=== PATIENT | male | born 1955 | race Two or more races ===

== ENCOUNTER 2017-02-10 07:46 | Emergency (ER) | payer OTHER ==
[~2017-02-10] VITALS: Ht 165.1 cm; Wt 87.2 kg
[~2017-02-10 07:46] MED LIST: VALIUM
[2017-02-10 07:48] VITALS: Ht 165.1 cm; Wt 87.2 kg
[2017-02-10] MEDS ORDERED: MUPI22OI2 TOP (08:25)
[2017-02-10] MEDS ORDERED: ACYC800T57 PO (08:25)
--- NOTE | 2017-02-10 09:25 | ERD ---
ER Documentation Chief Complaint Chief Complaint blistery painful rash right side thorso x2wks HPI Patient is a 62-year-old male presenting to the emergency department with complaints of rash to the right lower back, wrapping around to the right torso. He also noticed a lesion on the right side of his face. Symptoms started 2 weeks ago, and have been spreading according to the patient. He notes a mild itch and burning sensation. He is unsure whether he had chickenpox as a child. He denies fevers, chills, or other symptoms at this time. ROS All systems reviewed and are negative except as per history of present illness. Medications Home Meds Active Scripts Mupirocin* (Bactroban*) 2% -22 Gram Oint...g., 1 APPLIC TOP BID for 7 Days, EA Prov:VINOD DUFFY PA-C 02/10/17 Acyclovir* (Zovirax*) 800 Mg Tablet, 800 MG PO 5 TIMES DAILY for 7 Days, #35 TAB Prov:VINOD DUFFY PA-C 02/10/17 Reported Medications Valium 07/10/09 Allergies Allergies: Coded Allergies: No Known Drug Allergies (Verified Allergy, Mild, 07/10/09) PMhx/Soc History of Surgery: No Anesthesia Reaction: No Hx Neurological Disorder: No Hx Respiratory Disorders: No Hx Cardiac Disorders: No Hx Psychiatric Problems: No Hx Miscellaneous Medical Probl: No Hx Alcohol Use: No Hx Substance Use: No Hx Tobacco Use: No Physical Exam Vitals Vital Signs Date Time Temp Pulse Resp B/P Pulse Ox O2 Delivery O2 Flow Rate FiO2 02/10/17 07:48 98.1 71 18 134/83 97 Physical Exam Const: Nontoxic, well-appearing male in no acute distress. Head: Atraumatic Eyes: Normal Conjunctiva ENT: Normal External Ears, Nose and Mouth. Skin: There is a macular papular rash with vesicles noted to the right lower back, with some areas that appear to have ruptured and are healing. There is no significant surrounding erythema. There are some fresh vesicular lesions noted to the right lower torso and one noted on the right side of the face, just medial to the right eyebrow. No obvious signs of cellulitis noted. Back: No midline or flank tenderness Ext: No cyanosis, or edema Neur: Awake and alert Psych: Normal Mood and Affect Procedures/MDM Patient is a pleasant 62-year-old male presenting to the emergency department with complaints of rash. History and physical examination is consistent with shingles with no obvious cellulitis present. The patient stable for discharge with prescriptions for acyclovir and Bactroban. Low suspicion for herpes zoster ophthalmicus, disseminated cellulitis, sepsis, or other emergent conditions. No evidence of life-threatening pathology at time of discharge. Pt /family in agreement with discharge plan/diagnosis. Pt/family advised to return immediately with any new or worsening symptoms. Follow-up with primary care physician within the next 1-2 days. Departure Diagnosis: Primary Impression: Rash and other nonspecific skin eruption Condition: Fair Patient Instructions: Self-Care for Skin Rashes, Shingles (Herpes Zoster) Additional Instructions: Call your primary care doctor TOMORROW for an appointment during the next 1-2 days.See the doctor sooner or return here if your condition worsens before your appointment time. VINOD DUFFY PA-C Feb 10, 2017 09:25
== END 2017-02-10 09:05 | disposition home or self-care (01) ==
LOC: FTE 07:46
DX: R21 Rash and other nonspecific skin eruption (principal)
CPT/HCPCS: 99284

== ENCOUNTER 2018-08-13 12:00 | Inpatient (IN) | payer MEDICAID, OTHER ==
[2018-08-13] VITALS (16 sets, daily range): BP systolic 115–144; BP diastolic 71–93; PULSE 48–128; RESP 9–19; Ht 165.1 cm; Wt 84.0 kg
[~2018-08-13] VITALS: Ht 165.1 cm; Wt 84.0 kg
[~2018-08-13 12:00] MED LIST changes: +ACYC800T5 PO; +MUPI22OI2 TOP
[2018-08-13] MEDS ORDERED: ASPIRIN 325 MG TAB PO STA (12:08)
[2018-08-13] MEDS ORDERED: ONDANSETRON 4 MG INJ IV STA (12:08)
[2018-08-13] MEDS ORDERED: morphine 4 MG/ML VIAL IV STA (12:08)
[2018-08-13] MEDS ORDERED: LIDOCAINE 1% (MDV) 20 ML INJ ONE (12:22)
[2018-08-13] MEDS ORDERED: VERAPAMIL 5 MG INJ ONE (12:22)
[2018-08-13] MEDS ORDERED: HEPARIN 1000 UNITS/ML 10 ML INJ ONE (12:22)
[2018-08-13] MEDS ORDERED: FENTAnyl 50 MCG/ML VIAL ONE (12:22)
[2018-08-13] MEDS ORDERED: IODIXANOL LOCM 100 ML BTL ONE (12:22)
[2018-08-13] MEDS ORDERED: MIDAZOLAM 1 MG/ML 2 ML INJ ONE (12:22)
[2018-08-13] MEDS ORDERED: NITROGLYCERIN (IC) 100 MCG/ML INJ ONE (12:22)
[2018-08-13] MEDS ORDERED: NITROGLYCERIN (SL) 0.4 MG TAB SL PRN (12:30)
[2018-08-13] MEDS ORDERED: ASPI-817 PO (12:42)
[2018-08-13] MEDS ORDERED: NITR0.4T32 SL (12:42)
[2018-08-13] MEDS ORDERED: ERGO500013 PO (12:43)
[2018-08-13] MEDS ORDERED: LOVA20TA PO (12:43)
[2018-08-13] MEDS ORDERED: TERA2CAP3 PO (12:44)
--- NOTE | 2018-08-13 13:00 | ERD ---
ER Documentation Chief Complaint Chief Complaint chest pressure since yesterday HPI 63-year-old gentleman history of hypertension and hyperlipidemia who presents as a walk-in patient for chest pressure. He was having substernal chest discomfort that is 6 out of 10. He states over the past 2 days he has had worsening symptoms. He took a nitroglycerin at home with only moderate improvement. He arrives and appears to be critically ill. He is uncomfortable and diaphoretic and immediately placed in the room. Patient's EKG is concerning for ST elevation myocardial infarction. He denies any mid back pain or numbness or tingling or headache. ROS All systems reviewed and are negative except as per history of present illness. Medications Home Meds Reported Medications Terazosin Hcl* (Terazosin Hcl*) 2 Mg Capsule, 2 MG PO HS, CAP 08/13/18 Lovastatin* (Lovastatin*) 20 Mg Tablet, 20 MG PO HS, TAB 08/13/18 Ergocalciferol (Vitamin D2) (VITAMIN D2) 50,000 Unit Capsule, 51296 UNIT PO Q7D, CAP 08/13/18 Nitroglycerin* (Nitroglycerin* SL) 0.4 Mg Tab.subl, 0.4 MG SL Q5MIN PRN for CHEST PAIN, BOTTLE 08/13/18 Aspirin* (Aspirin* EC) 81 Mg Tablet.dr, 81 MG PO DAILY, TAB 08/13/18 Discontinued Reported Medications Valium 07/10/09 Discontinued Scripts Mupirocin* (Bactroban*) 2% -22 Gram Oint...g., 1 APPLIC TOP BID for 7 Days, EA Prov:VINOD DUFFY PA-C 02/10/17 Acyclovir* (Zovirax*) 800 Mg Tablet, 800 MG PO 5 TIMES DAILY for 7 Days, #35 TAB Prov:VINOD DUFFY PA-C 02/10/17 Allergies Allergies: Coded Allergies: No Known Drug Allergies (Verified Allergy, Mild, 08/13/18) PMhx/Soc Medical and Surgical Hx: pt denies Medical Hx, pt denies Surgical Hx History of Surgery: No Anesthesia Reaction: No Hx Neurological Disorder: No Hx Respiratory Disorders: No Hx Cardiac Disorders: No Hx Psychiatric Problems: No Hx Miscellaneous Medical Probl: No Hx Alcohol Use: No Hx Substance Use: No Hx Tobacco Use: No Smoking Status: [facility] smoker [facility] Family History: No diabetes Physical Exam Vitals Vital Signs Date Temp Pulse Resp B/P (MAP) Pulse Ox O2 O2 Flow FiO2 Time Delivery Rate 08/13/18 98.5 71 18 130/69 98 Nasal 12:15 (89) Cannula 08/13/18 Nasal 2 12:05 Cannula 08/13/18 98.2 70 18 161/84 98 12:02 (109) Physical Exam General: Uncomfortable Head: Normocephalic, atraumatic. Eyes: Pupils equally reactive, EOM intact ENT: Moist mucous membranes Neck: Supple, no lymphadenopathy Respiratory: Lungs clear bilaterally, no distress Cardiovascular: RRR, no murmurs, rubs, or gallops Abdominal: Soft, non-tender, non-distended, no peritoneal signs : Deferred MSK: No edema, no unilateral swelling, 5/5 strength Neurologic: Alert and oriented, moving all extremities, normal speech, no focal weakness, no cerebellar signs Skin: No rash Psych: Normal mood Result Diagram: 08/13/18 1212 08/13/18 1212 Results 24 hrs Laboratory Tests Test 08/13/18 12:12 White Blood Count 9.7 10^3/ul Red Blood Count 4.24 10^6/ul Hemoglobin 13.2 g/dl Hematocrit 39.8 % Mean Corpuscular Volume 93.9 fl Mean Corpuscular Hemoglobin 31.1 pg Mean Corpuscular Hemoglobin Concent 33.2 g/dl Red Cell Distribution Width 12.9 % Platelet Count 175 10^3/UL Mean Platelet Volume 12.0 fl Immature Granulocytes % 0.300 % Neutrophils % 80.8 % Lymphocytes % 11.7 % Monocytes % 6.4 % Eosinophils % 0.7 % Basophils % 0.1 % Nucleated Red Blood Cells % 0.0 /100WBC Immature Granulocytes # 0.030 10^3/ul Neutrophils # 7.9 10^3/ul Lymphocytes # 1.1 10^3/ul Monocytes # 0.6 10^3/ul Eosinophils # 0.1 10^3/ul Basophils # 0.0 10^3/ul Nucleated Red Blood Cells # 0.0 10^3/ul Prothrombin Time 12.6 Sec Prothrombin Time Ratio 1.0 INR International Normalized Ratio 0.93 Activated Partial Thromboplast Time 24.4 Sec Sodium Level 142 mmol/L Potassium Level 4.0 mmol/L Chloride Level 110 mmol/L Carbon Dioxide Level 24 mmol/L Anion Gap 8 Blood Urea Nitrogen 19 mg/dl Creatinine 1.17 mg/dl Est Glomerular Filtrat Rate mL/min > 60 mL/min Glucose Level 160 mg/dl Calcium Level 8.8 mg/dl Troponin I 0.020 ng/ml Current Medications Medications Dose Sig/[place] Start Time Status Last (Trade) Ordered Route PRN Stop Time Admin Dose Reason Admin Aspirin 325 mg ONCE STAT 08/13/18 DC 08/13/18 (Aspirin) PO 12:08 12:36 08/13/18 12:10 Morphine 4 mg ONCE STAT 08/13/18 DC 08/13/18 Sulfate IV 12:08 12:36 (morphine) 08/13/18 12:10 Ondansetron 4 mg ONCE STAT 08/13/18 DC 08/13/18 HCl (Zofran IV 12:08 12:36 Inj) 08/13/18 12:10 Procedures/MDM EKG, MONITORS, & DIAGNOSTIC IMAGING: EKG: I reviewed and interpreted a 12-lead EKG. Rhythm: Normal sinus rhythm ST Changes: ST segment elevations in leads V34 and 5 T waves: No contiguous T wave inversions Impression: Concerning for STEMI REPEAT EKG: I reviewed and interpreted a 12-lead EKG. Rhythm: Normal sinus rhythm ST Changes: ST segment elevations in leads V34 and 5 T waves: No contiguous T wave inversions Impression: Concerning for STEMI Chest x-ray: I reviewed and interpreted a 1 view of the chest Mediastinum: No enlargement Cardiac silhouette: No cardiomegaly Airspace: Clear lung briscoe bilaterally without evidence of pneumothorax Bones: No evidence of fracture LAB INTERPRETATION: pending MEDICAL DECISION MAKING: The patient arrives with chest pressure that is concerning for cardiac etiology. EKG is concerning for ST elevation myocardial infarction. Patient was immediately placed on the monitor, 2 large-bore IVs were established. The patient was placed on pacer pads. He was given aspirin, nitro, morphine with improved symptomatology. Electrical [employer] Re[employer] was readily activated and the patient was emergently taken to the [facility] where he had a conversation with the vacuum system tester and the patient is a good candidate for angiogram. No signs or symptoms concerning for dissection or pulmonary embolism. STEMI assessment and timing: Onset of symptoms: 2 days ago Arrival to ED: See EMR STEMI code activation: 1208 Initial conversation with cardiology: Denis in person convo in the dental laboratory technology teacher Patient taken to [facility]: [id number] powertrain design engineer on-call: Dr. Ritchie Critical Care Note: Total time: 35 minutes Indication/Organ System Threat: Acute EKG changes suggestive of ST elevation myocardial infarction and significant risk for cardiovascular compromise and collapse. I spent the above amount of critical care time with the patient, not including billable procedures. This included chart review, consultations, repeat bedside evaluations, and titration of appropriate medications to prevent cardiopulmonary or respiratory collapse. DISPOSITION PLAN: ICU admission Accepting care team and consultations: I discussed the current laboratory data, diagnostic imaging and emergency care provided. Admitting team: Dr. Nair Admitting team indication: Insurance directed Departure Diagnosis: Primary Impression: STEMI (ST elevation myocardial infarction) Involved coronary artery: unspecified coronary artery Qualified Codes: I21.3 - ST elevation (STEMI) myocardial infarction of unspecified site Additional Impression: Chest pain Chest pain type: unspecified Qualified Codes: R07.9 - Chest pain, unspecified Condition: Critical DENISSE MADERA MD August 13, 2018 13:00
[2018-08-13] MEDS ORDERED: CLOPIDOGREL 300 MG TAB ONE (13:08)
[2018-08-13] MEDS ORDERED: BIVALIRUDIN 250MG /NS 50 ML 50 ML IVPB SCH (13:17)
[2018-08-13] MEDS ORDERED: SOD CHLORIDE 0.9% 1,000 ML IV SCH (13:17)
--- NOTE | 2018-08-13 13:22 | SIPON ---
Date/Time of Note Date/Time of Note DATE: 08/13/18 TIME: 13:21 Operative Report Preoperative Diagnosis 1.STEMI Postoperative Diagnosis 1.obstructive cad s/p stent x 1 to LAD Operation/Procedure Performed 1.PTCA/stent x 1 to mid LAD Surgeon see signature line gift shop assistant 1.[place] Anesthesia: moderate sedation Estimated blood loss: minimal Transfusion Required none Specimen none Grafts/Implants none Complications none GAMA PLASCENCIA August 13, 2018 13:21
[2018-08-13] MEDS ORDERED: ZOLPIDEM 5 MG TAB PO PRN (13:30)
[2018-08-13] MEDS ORDERED: morphine 2 MG INJ IV PRN (13:30)
[2018-08-13] MEDS ORDERED: ACETAMINOPHEN 325 MG TAB PO PRN (13:30)
[2018-08-13] MEDS ORDERED: ONDANSETRON 4 MG INJ IV PRN (13:30)
[2018-08-13] MEDS ORDERED: OXYCODONE/ACETAMINOPHEN (5/325) TAB PO PRN (13:30)
[2018-08-13] MEDS ORDERED: AL HYDROX/MG HYDROX/SIMETH 30 ML CUP PO PRN (13:30)
--- NOTE | 2018-08-13 16:15 | HP ---
Date/Time of Note Date/Time of Note DATE: 08/13/18 TIME: 16:14 Assessment/Plan VTE Prophylaxis Pharmacological prophylaxis: NA/contraindicated Pharm contraindication: low risk/ambulating Lines/Catheters IV Catheter Type (from [facility]): Peripheral IV Urinary Cath still in place: No Assessment/Plan Hospital Course 63-year-old male with comorbidities including dyslipidemia and prostate hypertrophy who was brought in with STEMI and was taken to [facility] emergently and underwent a left heart catheterization with LAD stent placed. 1. STEMI. -Status post left heart catheterization with stent placement to mid LAD. -Continue dual antiplatelet therapy. -Pending 2D echocardiogram. -Continue statins. 2. Hypertension. -Start the patient on appropriate antihypertensives. 3. Dyslipidemia. -Continue statins. -Obtain a fasting lipid panel. 4. Prostate hypertrophy. -Resume alpha blockers. Plan: The patient will be admitted to inpatient intensive care unit floor. The patient will be started on a low-cholesterol diet. The patient will be started on DVT prophylaxis and gastrointestinal prophylaxis. The patient will remain a full code. Activities will be as tolerated. The rest of the patient's management will be based on the clinical course, inputs from consultants, and the results of diagnostic studies. Based on the patient's clinical presentation, he most probably requires at least 2 midnights' stay for further management and evaluation of his clinical presentation. The patient was seen in collaboration with Dr. Nair. Result Diagram: 08/13/18 1212 08/13/18 1212 Results 24hrs Laboratory Tests Test 08/13/18 12:11 08/13/18 12:12 Hemoglobin A1c 5.6 White Blood Count 9.7 Red Blood Count 4.24 L Hemoglobin 13.2 L Hematocrit 39.8 L Mean Corpuscular Volume 93.9 Mean Corpuscular Hemoglobin 31.1 Mean Corpuscular Hemoglobin Concent 33.2 Red Cell Distribution Width 12.9 Platelet Count 175 Mean Platelet Volume 12.0 H Immature Granulocytes % 0.300 Neutrophils % 80.8 H Lymphocytes % 11.7 L Monocytes % 6.4 Eosinophils % 0.7 Basophils % 0.1 Nucleated Red Blood Cells % 0.0 Immature Granulocytes # 0.030 Neutrophils # 7.9 H Lymphocytes # 1.1 Monocytes # 0.6 Eosinophils # 0.1 Basophils # 0.0 Nucleated Red Blood Cells # 0.0 Prothrombin Time 12.6 Prothrombin Time Ratio 1.0 INR International Normalized Ratio 0.93 Activated Partial Thromboplast Time 24.4 Sodium Level 142 Potassium Level 4.0 Chloride Level 110 Carbon Dioxide Level 24 Anion Gap 8 Blood Urea Nitrogen 19 Creatinine 1.17 Est Glomerular Filtrat Rate mL/min > 60 Glucose Level 160 Calcium Level 8.8 Troponin I 0.020 HPI/ROS Admit Date/Time Admit Date/Time August 13, 2018 at 12:36 Hx of Present Illness Reason for admission: STEMI. Consultants 1. Mekhi Ritchie MD, Cardiology. This is a 63-year-old male with past medical history of prostate hypertrophy and dyslipidemia. The patient started having chest pain with associated fatigue since 08/12/2018 evening. The patient went to bed after eating some food. The patient woke up in the morning with chest pain. The patient denied any nausea/vomiting. He denied any diaphoresis. The patient's family called EMS and the patient was found to have ST elevation MD. The patient was emergently taken to the [facility] and the patient underwent a left heart catheterization with PTCA stent x1 to mid LAD. The patient was transferred to intensive care unit. ROS Constitutional: fatigue Eyes: no complaints ENT: no complaints Respiratory: no complaints Cardiovascular: chest pain Gastrointestinal: no complaints Genitourinary: no complaints Musculoskeletal: no complaints Skin: no complaints Neurologic: no complaints Endocrine: no complaints Lymphatic: no complaints Psychological: no complaints Immunologic: no complaints PMH/Family/Social Past Medical History 1. Prostate hypertrophy. 2. Dyslipidemia. Medications Current Medications Nitroglycerin (Nitroglycerin (Sl Tab) 0.4 Mg) 1 tab Q5M UP TO 3 DOSES PRN SL .CHEST PAIN Last administered on 08/13/18at 12:36; Admin Dose 1 TAB; Start 08/13/18 at 12:30 Aspirin (Halfprin) 81 mg DAILY PO ; Start 08/14/18 at 09:00 Clopidogrel Bisulfate (plaVIX) 75 mg DAILY PO ; Start 08/14/18 at 09:00 Acetaminophen (Tylenol Tab) 650 mg Q4H PRN PO PAIN; Start 08/13/18 at 13:30 Oxycodone/ Acetaminophen (Percocet (5/ 325)) 1 tab Q4H PRN PO PAIN; Start 08/13/18 at 13:30 Morphine Sulfate (morphine) 1 mg Q1H PRN IV PAIN; Start 08/13/18 at 13:30 Zolpidem Tartrate (Ambien) 5 mg HS MAY REPEAT X 1 PRN PO INSOMNIA; Start 08/13/18 at 13:30 Al Hydrox/Mg Hydrox/Simethicone (Mag-Al Plus) 30 ml Q4H PRN PO GASTROINTESTINAL UPSET; Start 08/13/18 at 13:30 Ondansetron HCl (Zofran Inj) 4 mg Q4H PRN IV NAUSEA AND/OR VOMITING; Start 08/13/18 at 13:30 Sodium Chloride 1,000 ml @ 75 mls/hr [id number] IV Last administered on 08/13/18at 15:15; Admin Dose 75 MLS/HR; Start 08/13/18 at 13:17; Stop 08/14/18 at 02:36 Coded Allergies: No Known Drug Allergies (Verified Allergy, Mild, 08/13/18) Past Surgical History Past Surgical Hx: no surgical history Social History Alcohol Use: none Smoking Status: Never smoker Drug Use: none Exam/Review of Systems Vital Signs Vitals Vital Signs Date Temp Pulse Resp B/P (MAP) Pulse Ox O2 O2 Flow FiO2 Time Delivery Rate 08/13/18 73 18 115/71 95 Room Air 15:00 (86) 08/13/18 98.5 12:15 08/13/18 2 12:05 Exam Exam General: Adequately build 63 year-old male lying in bed in no apparent distress. HEENT: Normocephalic, atraumatic. Eyes: Anicteric sclerae, conjunctivae clear. ENT: Nasal septum midline, oral mucosa moist. Neck supple. Respiratory: Bilaterally diminished breath sounds. No use of accessory muscles of respiration. No adventitious breath sounds. Cardiovascular: S1, S2 heard. Regular rate and rhythm. Abdomen: Soft, nontender, and nondistended. Bowel sounds positive in all 4 quadrants. Genitourinary: Deferred. Extremities: No cyanosis, no clubbing, no edema. Peripheral pulses palpable. Neurologic: Cranial nerves II through XII grossly intact. The patient is awake, alert, and oriented. Skin: Normal skin turgor. No skin rashes. Additional Comments CXR IMPRESSION: Shallow inspiration without radiographic evidence of acute cardiopulmonary pathology. HOPE ALDANA NP August 13, 2018 16:14
--- NOTE | 2018-08-13 19:50 | CARRPT ---
DATE OF PROCEDURE: 08/13/2018 TYPE OF PROCEDURE: 1. Left heart catheterization. 2. Coronary angiography. 3. Percutaneous transluminal coronary angioplasty with placement of Synergy drug-eluting stent x1 3. 0 x 16 mm to mid left anterior descending. 4. Measure of left ventricular end diastolic pressure. ATTENDING PHYSICIAN: Gama Ritchie MD REFERRING PHYSICIAN: Dr. Rodriguez from the emergency department. INDICATION: ST elevation myocardial infarction. TYPE OF ANESTHESIA: Conscious local. BRIEF HISTORY: Mr. Espinoza is a 63-year-old male with a history of hypertension, dyslipidemia, who p resented with complaints of substernal chest pain, found to have ST elevations on his EKG, therefore, brought to cardiac mechanical shop laborer in order to undergo left heart catheterization to assess for possibility of significant obstructed coronary arteries leading to episodes of chest pain and subsequent non-ST myocardial infarction. PROCEDURE: After informed consent was obtained, patient was brought to [facility] cardiac mechanical shop laborer where his right radial area was prepped and draped in the usual sterile fashion. Li docaine 2% was infiltrated into right radial artery in order to achieve adequate anesthesia. Using m odified Seldinger technique, the radial artery was cannulated and a 6-Qatari arterial sheath was plac ed. A 6-Qatari JL3.5 catheter was used in attempts to cannulate the left main coronary ostium, but a ctually cannulated the right coronary artery ostium and thus contrast injection in multiple views of the right coronary was obtained. This is then repositioned to cannulate the left main coronary ostiu m with contrast injection. Multiple views of the left coronary system were obtained. This revealed the patient to have 99% subtotal occlusion in the patient's LAD and therefore we moved directly into interventional procedure. The patient received Angiomax bolus continuous infusion after receiving 20 00 units of heparin, given radial cocktail that also had 2.5 verapamil and 200 mcg nitroglycerin. A 0.014 Four Horse Hitch Driver 50 guidewire was passed to the distal lesion of the LAD. The lesion was pretreated with a 2.0 x 12 mm balloon to restore SONIDO-3 flow up to 14 atmospheres. This was removed and lesion was s tented with a 3.0 x 16 mm drug-eluting stent up to 14 atmospheres, post-dilated with the stent delive ry system at 16 atmospheres. Followup angio obtained revealed excellent result deployment of the rosana nt, SONIDO-3 flow throughout the vessel. No signs of complication including perforation or dissection. Some plaque shift into a diagonal that bifurcated midway to the lesion but continued to have excell ent SONIDO-3 flow. Subsequently, at this time, the patient's initial guide and guidewires were removed . A 6-Qatari pigtail was passed down the ascending aorta placed in LV. LVEDP was measured. Due to elevated, LVEDP, no LV gram was undertaken. Pullback across the aortic valve to assess for significa nt gradient which there was none and removed. Subsequently, at this time, at the conclusion of proce dure, patient's sheath was removed. TR band was applied. There were no noted complications. FINDINGS: Coronary angiography: Right coronary artery proximally is a 3 mm vessel and has a midbody 20% stenosis. The remainder of the right coronary artery is free from focal stenoses. The dominant vessel gives off a 2.5 mm 2 mm vessel and has an ostial 50% stenosis. The posterolateral bran ch is a large vessel 3 mm with no significant focal stenosis, which splits to 2 daughter vessels, 2 m m, with no significant focal stenosis. The patient's left main proximally is a 4 mm vessel with no s ignificant focal stenoses. Circumflex is a 3 mm vessel and has a 20% ostial stenosis. Remainder of the circumflex is free from significant focal stenosis. Mid branching obtuse marginal 2.5 mm with no significant focal stenosis. Proximal branching obtuse marginal 2 mm with no significant focal steno sis. There exists a ramus branch which has a mid body 50% stenosis. The LAD proximally is a 3 mm ve ssel and then just the bifurcation of a sizeable diagonal, it becomes 99% occluded with minimal flow just passed distal. There is a diagonal branch distal to the lesion, 2.5 mm, no significant focal st enoses. PTCA and stent placement: Prior to PTCA and stent placement, there is a 99% subtotal occlusion with very minimal sluggish flow. Post-PTCA and stent placement, the patient had no residual occlusion, TI RI-3 flow of the vessel, no signs of complication including perforation or dissection and the diagona l that bifurcated midway through the lesion did remain patent, did suffer plaque shift but continued to have SONIDO-3 excellent flow. TOTAL FLUOROSCOPY TIME: 6.5 minutes. TOTAL CONTRAST: 150 mL. IMPRESSION: 1. Obstructive coronary artery disease involving 99.9% mid-LAD lesion as the culprit to patient's no n-ST elevation myocardial infarction status post successful PTCA and stent placement x1 to mid LAD, 2 .0 x 3.0 x 60 mm. 2. Moderate stenosis of the patient's right PDA and ramus branch. 3. Elevated left heart filling pressures 39. 4. No significant aortic systolic gradient. RECOMMENDATIONS: In light of procedure findings at this time, we would: 1. Maximize medical management. 2. Aggressive risk factor reduction. 3. Patient should remain on Plavix 75 mg 1 tab p.o. daily times at least 1 year. 4. Aspirin 81 mg 1 tab p.o. daily indefinitely. 5. Patient will be admitted to the ICU post-intervention for ongoing evaluation and treatment. Dictated By: GAMA MEEKS/MILLI Conf#: [id number] DID#: [id number] CC: DENISSE RODRIGUEZ MD;*EndCC*
[2018-08-13] MEDS: ATORVASTATIN 40 MG TAB PO SCH (21:44)
[2018-08-13] MEDS: TERAZOSIN 2 MG CAP PO SCH (21:44)
[2018-08-14] VITALS (25 sets, daily range): BP systolic 111–149; BP diastolic 68–104; PULSE 50–82; RESP 7–21
[2018-08-14] MEDS: CLOPIDOGREL 75 MG TAB PO SCH (08:41)
[2018-08-14] MEDS ORDERED: ASPIRIN (EC) 81 MG TAB PO SCH (09:00)
--- NOTE | 2018-08-14 10:47 | PN ---
Date/Time of Note Date/Time of Note DATE: 08/14/18 TIME: 10:45 Assessment/Plan VTE Prophylaxis Risk score (from Ns)>0 risk: 4 SCD applied (from Ns): Yes Pharmacological prophylaxis: NA/contraindicated Pharm contraindication: low risk/ambulating Lines/Catheters IV Catheter Type (from [facility]): Peripheral IV Urinary Cath still in place: No Assessment/Plan Hospital Course SUBJECTIVE: Denies any chest pain. OBJECTIVE: Physical Exam General: Adequately build 63 year-old male lying in bed in no apparent distress. HEENT: Normocephalic, atraumatic. Eyes: Anicteric sclerae, conjunctivae clear. ENT: Nasal septum midline, oral mucosa moist. Neck supple. Respiratory: Bilaterally diminished breath sounds. No use of accessory muscles of respiration. No adventitious breath sounds. Cardiovascular: S1, S2 heard. Regular rate and rhythm. Abdomen: Soft, nontender, and nondistended. Bowel sounds positive in all 4 quadrants. Genitourinary: Deferred. Extremities: No cyanosis, no clubbing, no edema. Peripheral pulses palpable. Neurologic: Cranial nerves II through XII grossly intact. The patient is awake, alert, and oriented. Skin: Normal skin turgor. No skin rashes. Labs & Vitals per chart ASSESSMENT & PLAN 63-year-old male with comorbidities including dyslipidemia and prostate hypertrophy who was brought in with STEMI and was taken to [facility] emergently and underwent a left heart catheterization with LAD stent placed. 1. STEMI. -Status post left heart catheterization with stent placement to mid LAD. -Continue dual antiplatelet therapy. -Pending 2D echocardiogram. -Continue statins. 2. Hypertension. -Start the patient on appropriate antihypertensives. 3. Dyslipidemia. -Continue statins. 4. Prostate hypertrophy. -Continue alpha blockers. 5. Fluids, electrolytes, and nutrition. -Low-cholesterol diet. 6. DVT prophylaxis. -Bilateral SCDs. 7. Plan. -Continue dual antiplatelet therapy. -Continue statins. -Start low-dose SORAYA inhibitors. -Transfer the patient out of ICU once cleared by cardiology. The patient was seen in collaboration with Dr. Nair. Result Diagram: 08/14/18 0456 08/14/18 0455 Results 24hrs Laboratory Tests Test 08/13/18 12:11 08/13/18 12:12 08/13/18 18:37 08/13/18 23:38 Hemoglobin A1c 5.6 White Blood Count 9.7 Red Blood Count 4.24 L Hemoglobin 13.2 L Hematocrit 39.8 L Mean Corpuscular 93.9 Volume Mean Corpuscular 31.1 Hemoglobin Mean Corpuscular 33.2 Hemoglobin Concent Red Cell 12.9 Distribution Width Platelet Count 175 Mean Platelet Volume 12.0 H Immature 0.300 Granulocytes % Neutrophils % 80.8 H Lymphocytes % 11.7 L Monocytes % 6.4 Eosinophils % 0.7 Basophils % 0.1 Nucleated Red Blood 0.0 Cells % Immature 0.030 Granulocytes # Neutrophils # 7.9 H Lymphocytes # 1.1 Monocytes # 0.6 Eosinophils # 0.1 Basophils # 0.0 Nucleated Red Blood 0.0 Cells # Prothrombin Time 12.6 Prothrombin Time 1.0 Ratio INR International 0.93 Normalized Ratio Activated 24.4 Partial Thromboplast Time Sodium Level 142 139 Potassium Level 4.0 4.4 Chloride Level 110 109 Carbon Dioxide Level 24 26 Anion Gap 8 4 L Blood Urea Nitrogen 19 17 Creatinine 1.17 1.12 Est Glomerular > 60 > 60 Filtrat Rate mL/min Glucose Level 160 111 # Calcium Level 8.8 8.6 Troponin I 0.020 66.000 *H 64.900 *H Phosphorus Level 4.3 Magnesium Level 2.0 Creatine Kinase 2794 H 1431 H Creatine Kinase 2.8 4.2 Index Creatinine Kinase MB 78.80 H 60.80 H (Mass) Test 08/14/18 04:55 08/14/18 04:56 Sodium Level 141 Potassium Level 4.0 Chloride Level 112 H Carbon Dioxide Level 23 Anion Gap 6 Blood Urea Nitrogen 15 Creatinine 1.08 Est Glomerular > 60 Filtrat Rate mL/min Glucose Level 104 Calcium Level 8.4 Total Bilirubin 0.7 Direct Bilirubin 0.00 Indirect Bilirubin 0.7 Aspartate Amino 174 H Transf (AST/SGOT) Alanine 49 Aminotransferase (AL T/SGPT) Alkaline Phosphatase 67 Total Protein 7.1 Albumin 3.5 Globulin 3.60 H Albumin/Globulin 0.97 Ratio White Blood Count 10.1 Red Blood Count 4.09 L Hemoglobin 12.7 L Hematocrit 38.0 L Mean Corpuscular 92.9 Volume Mean Corpuscular 31.1 Hemoglobin Mean Corpuscular 33.4 Hemoglobin Concent Red Cell 13.2 Distribution Width Platelet Count 167 Mean Platelet Volume 12.4 H Immature 0.300 Granulocytes % Neutrophils % 75.9 Lymphocytes % 13.4 L Monocytes % 9.5 Eosinophils % 0.7 Basophils % 0.2 Nucleated Red Blood 0.0 Cells % Immature 0.030 Granulocytes # Neutrophils # 7.6 H Lymphocytes # 1.4 Monocytes # 1.0 H Eosinophils # 0.1 Basophils # 0.0 Nucleated Red Blood 0.0 Cells # Phosphorus Level 3.4 Magnesium Level 1.8 Creatine Kinase 1074 H Creatine Kinase 4.0 Index Creatinine Kinase MB 42.60 H (Mass) Troponin I 45.200 *H Triglycerides Level 132 Cholesterol Level 183 LDL Cholesterol, 117 Calculated HDL Cholesterol 40 Cholesterol/HDL 4.5 Ratio Exam/Review of Systems Exam Vitals Vital Signs Date Temp Pulse Resp B/P (MAP) Pulse Ox O2 O2 Flow FiO2 Time Delivery Rate 08/14/18 98.6 69 7 118/81 93 Room Air 08:00 (93) 08/13/18 2 12:05 Intake and Output 08/13/18 08/13/18 08/14/18 1515:00 23:00 07:00 IntakeIntake Total 425 ml 100 ml OutputOutput Total 775 ml 450 ml BalanceBalance -350 ml -350 ml Results Results 24hrs Laboratory Tests Test 08/13/18 12:11 08/13/18 12:12 08/13/18 18:37 08/13/18 23:38 Hemoglobin A1c 5.6 White Blood Count 9.7 Red Blood Count 4.24 L Hemoglobin 13.2 L Hematocrit 39.8 L Mean Corpuscular 93.9 Volume Mean Corpuscular 31.1 Hemoglobin Mean Corpuscular 33.2 Hemoglobin Concent Red Cell 12.9 Distribution Width Platelet Count 175 Mean Platelet Volume 12.0 H Immature 0.300 Granulocytes % Neutrophils % 80.8 H Lymphocytes % 11.7 L Monocytes % 6.4 Eosinophils % 0.7 Basophils % 0.1 Nucleated Red Blood 0.0 Cells % Immature 0.030 Granulocytes # Neutrophils # 7.9 H Lymphocytes # 1.1 Monocytes # 0.6 Eosinophils # 0.1 Basophils # 0.0 Nucleated Red Blood 0.0 Cells # Prothrombin Time 12.6 Prothrombin Time 1.0 Ratio INR International 0.93 Normalized Ratio Activated 24.4 Partial Thromboplast Time Sodium Level 142 139 Potassium Level 4.0 4.4 Chloride Level 110 109 Carbon Dioxide Level 24 26 Anion Gap 8 4 L Blood Urea Nitrogen 19 17 Creatinine 1.17 1.12 Est Glomerular > 60 > 60 Filtrat Rate mL/min Glucose Level 160 111 # Calcium Level 8.8 8.6 Troponin I 0.020 66.000 *H 64.900 *H Phosphorus Level 4.3 Magnesium Level 2.0 Creatine Kinase 2794 H 1431 H Creatine Kinase 2.8 4.2 Index Creatinine Kinase MB 78.80 H 60.80 H (Mass) Test 08/14/18 04:55 08/14/18 04:56 Sodium Level 141 Potassium Level 4.0 Chloride Level 112 H Carbon Dioxide Level 23 Anion Gap 6 Blood Urea Nitrogen 15 Creatinine 1.08 Est Glomerular > 60 Filtrat Rate mL/min Glucose Level 104 Calcium Level 8.4 Total Bilirubin 0.7 Direct Bilirubin 0.00 Indirect Bilirubin 0.7 Aspartate Amino 174 H Transf (AST/SGOT) Alanine 49 Aminotransferase (AL T/SGPT) Alkaline Phosphatase 67 Total Protein 7.1 Albumin 3.5 Globulin 3.60 H Albumin/Globulin 0.97 Ratio White Blood Count 10.1 Red Blood Count 4.09 L Hemoglobin 12.7 L Hematocrit 38.0 L Mean Corpuscular 92.9 Volume Mean Corpuscular 31.1 Hemoglobin Mean Corpuscular 33.4 Hemoglobin Concent Red Cell 13.2 Distribution Width Platelet Count 167 Mean Platelet Volume 12.4 H Immature 0.300 Granulocytes % Neutrophils % 75.9 Lymphocytes % 13.4 L Monocytes % 9.5 Eosinophils % 0.7 Basophils % 0.2 Nucleated Red Blood 0.0 Cells % Immature 0.030 Granulocytes # Neutrophils # 7.6 H Lymphocytes # 1.4 Monocytes # 1.0 H Eosinophils # 0.1 Basophils # 0.0 Nucleated Red Blood 0.0 Cells # Phosphorus Level 3.4 Magnesium Level 1.8 Creatine Kinase 1074 H Creatine Kinase 4.0 Index Creatinine Kinase MB 42.60 H (Mass) Troponin I 45.200 *H Triglycerides Level 132 Cholesterol Level 183 LDL Cholesterol, 117 Calculated HDL Cholesterol 40 Cholesterol/HDL 4.5 Ratio Medications Medication Current Medications Nitroglycerin (Nitroglycerin (Sl Tab) 0.4 Mg) 1 tab Q5M UP TO 3 DOSES PRN SL .CHEST PAIN Last administered on 08/13/18at 12:36; Admin Dose 1 TAB; Start 08/13/18 at 12:30 Aspirin (Halfprin) 81 mg DAILY PO Last administered on 08/14/18at 08:41; Admin Dose 81 MG; Start 08/14/18 at 09:00 Clopidogrel Bisulfate (plaVIX) 75 mg DAILY PO Last administered on 08/14/18at 08:41; Admin Dose 75 MG; Start 08/14/18 at 09:00 Acetaminophen (Tylenol Tab) 650 mg Q4H PRN PO PAIN; Start 08/13/18 at 13:30 Oxycodone/ Acetaminophen (Percocet (5/ 325)) 1 tab Q4H PRN PO PAIN; Start 08/13/18 at 13:30 Morphine Sulfate (morphine) 1 mg Q1H PRN IV PAIN; Start 08/13/18 at 13:30 Zolpidem Tartrate (Ambien) 5 mg HS MAY REPEAT X 1 PRN PO INSOMNIA; Start 08/13/18 at 13:30 Al Hydrox/Mg Hydrox/Simethicone (Mag-Al Plus) 30 ml Q4H PRN PO GASTROINTESTINAL UPSET; Start 08/13/18 at 13:30 Ondansetron HCl (Zofran Inj) 4 mg Q4H PRN IV NAUSEA AND/OR VOMITING; Start 08/13/18 at 13:30 Terazosin HCl (Hytrin) 2 mg HS PO Last administered on 08/13/18at 21:44; Admin Dose 2 MG; Start 08/13/18 at 21:00 Atorvastatin Calcium (Lipitor) 40 mg HS PO Last administered on 08/13/18at 21:44; Admin Dose 40 MG; Start 08/13/18 at 21:00 HOPE ALDANA NP August 14, 2018 10:47
--- NOTE | 2018-08-14 21:36 | RADRPT ---
Echocardiogram Report Patient Name: LUCRECIA ESPARZAPatient ID: [id number] : 1955 (63y 7m)Study Date: 08/14/2018 7:13:07 AM Gender: MAccession #: [id number] Tech: Darlene Carpenter RUST Location: 110 Ref.Physician: GAMA RITCHIE Height(Cm): BSA: Weight(Kg): Quality: AdequateOrder Physician: GAMA RITCHIE Account #: Procedures: Echocardiographic Report: Transthoracic echocardiogram with complete 2D, M-Mode, and doppler examination. Indications: STEMI. Measurements: 2D/M Mode Doppler Measurement Value Normal Range Measurement Value Normal Range LVIDd 2D 4.4 [ 4.2 - 5.8 ] cm AV Peak Derw 1.1 [ 100.0 - 170.0 ] cm/sec LVIDs 2D 3.1 [ 2.5 - 4.0 ] cm AV Peak PG 5.0 [ 2.0 - 9.0 ] mmHg LVPWd 2D 1.1 [ 0.6 - 1.0 ] cm LVOT Peak Drew 0.8 [ 70.0 - 110.0 ] cm/sec IVSd 2D 1.1 [ 0.6 - 1.0 ] cm LVOT Peak PG 2.0 [ 2.0 - 6.0 ] mmHg AoR Diam 2D 2.5 [ 2.6 - 3.4 ] cm MV E Peak Drew 0.8 [ 60.0 - 130.0 ] cm/sec EDV 2D 90.1 [ 62.0 - 150.0 ] ml MV A Peak Drew 0.3 [ 100.0 - 120.0 ] cm/sec ESV 2D 38.8 [ 21.0 - 61.0 ] ml MV E/A 2.8 [ 0.8 - 1.5 ] ratio EF 2D 56.9 [ 52.0 - 72.0 ] percent MV Decel Time 134 [ 104 - 258 ] msec LA Dimen 2D 3.9 [ 3.0 - 4.0 ] cm Lat E` Drew 0.1 [ 10.0 - 15.0 ] cm/sec Lateral E/E` 7.6 [ 1.0 - 2.0 ] ratio MV E/A 2.8 [ 0.8 - 1.5 ] ratio TR Peak Drew 3.4 [ 100.0 - 280.0 ] cm/sec TR Peak PG 47.0 mmHg RVSP 62.0 [ 10.0 - 36.0 ] mmHg RA Pressure 15.0 mmHg Findings: Left Ventricle: Normal left ventricular systolic function. Normal left ventricular cavity size. Mild concentric left ventricular hypertrophy. Moderate left ventricular systolic dysfunction. Ejection fraction is visually estimated at 30-35 %. These segments of the LV are hypokinetic mid anterior segment, apical anterior segment, anteroseptum mid segment, apex and apical septum. Right Ventricle: Normal right ventricular size. Normal right ventricular systolic function. Left Atrium: The left atrium is normal in size. Right Atrium: The right atrium is normal in size. Mitral Valve: Normal appearance of the mitral valve. Mild mitral annular calcification. Trace mitral regurgitation. Aortic Valve: No significant aortic stenosis or insufficiency. Aortic cusps appear mildly calcified. Tricuspid Valve: Normal appearance of the tricuspid valve. The estimated Peak RVSP is 62 mmHg. There is moderate tricuspid regurgitation. Pulmonic Valve: Pulmonic valve not well visualized. Pericardium: Normal pericardium with no significant pericardial effusion. Aorta: Normal aortic root. IVC: Dilated IVC without respiratory collapse consistent with elevated right atrial pressure. Conclusions: Normal left ventricular systolic function. Normal left ventricular cavity size. Mild concentric left ventricular hypertrophy. Moderate left ventricular systolic dysfunction. Ejection fraction is visually estimated at 30-35 %. These segments of the LV are hypokinetic mid anterior segment, apical anterior segment, anteroseptum mid segment, apex and apical septum. Normal appearance of the mitral valve. Mild mitral annular calcification. Trace mitral regurgitation. Normal appearance of the tricuspid valve. The estimated Peak RVSP is 62 mmHg. There is moderate tricuspid regurgitation. Electronically Signed By: Gama Ritchie 2018-08-14 21:35:10 PDT
[2018-08-14] MEDS: ATORVASTATIN 40 MG TAB PO SCH (22:39)
[2018-08-14] MEDS: TERAZOSIN 2 MG CAP PO SCH (22:39)
[2018-08-14] MEDS: METOPROLOL 25 MG TAB PO SCH (22:39)
[2018-08-15] VITALS: PULSE 80
[2018-08-15 00:13] VITALS: BP 130/67; PULSE 65; RESP 18
[2018-08-15 03:55] VITALS: BP 142/79; PULSE 69; RESP 18
[2018-08-15 04:00] VITALS: PULSE 65
[2018-08-15 07:16] VITALS: BP 130/80; PULSE 64; RESP 18
[2018-08-15] MEDS: CLOPIDOGREL 75 MG TAB PO SCH (08:43)
[2018-08-15] MEDS: METOPROLOL 25 MG TAB PO SCH (08:43)
[2018-08-15] MEDS ORDERED: BENAZEPRIL 5 MG TAB PO SCH (09:00)
[2018-08-15] MEDS ORDERED: ASPIRIN 81 MG TAB PO SCH (09:00)
[2018-08-15] MEDS ORDERED: ATOR40TA68 PO (09:56)
[2018-08-15] MEDS ORDERED: METO-448 PO (09:56)
[2018-08-15] MEDS ORDERED: BENA5TAB33 PO (09:56)
[2018-08-15] MEDS ORDERED: CLOP75TA28 PO (09:56)
--- NOTE | 2018-08-15 09:56 | PDOCDIS ---
Discharge Instructions CONDITION [id number] Patient Condition: [id number] Good HOME CARE INSTRUCTIONS: [id number] Diet Instructions: [id number] Low Fat /Cholesterol ACTIVITY: [id number] Activity Restrictions: [id number] Slowly Increase Activity FOLLOW UP/APPOINTMENTS Follow-up Plan pcp [address] Ritchie 1 week BETTY TROTTER MD August 15, 2018 09:56
--- NOTE | 2018-08-15 10:01 | QN ---
Documentation Comment The patient's care will be taken over by Dr. Candelaria because of insurance reasons. Case discussed with HOPE Bhagat NP August 15, 2018 10:01
[2018-08-15 11:22] VITALS: BP 89/53; PULSE 56; RESP 18
--- NOTE | 2018-08-15 11:47 | CONS ---
Assessment/Plan Assessment/Plan Hospital Course (Demo Recall) IMP: 1. STEMI s/p stent x 1 to LAD 2.Cardiomyopathy with low EF 30-35% after stemi 3.HTN 4.Bradycardia to 50's mainly 5.Dyslipidemia 6. BPH Recc: -ok for d/c from cardiac stndpoint -Continue asa/plavix/statin -Continue low dose BB as tolerated s/p stemi -Continue ACEI -Follwo volume status closely with probable need for low dose lasix -outpatint f/u 1-2 weeks with myself. Consultation Date/Type/Reason Admit Date/Time August 13, 2018 at 12:36 Initial Consult Date 08/13/18 Type of Consult Cardiology Reason for Consultation Stemi Requesting Provider: BETTY TROTTER MD Date/Time of Note DATE: 08/15/18 TIME: 11:37 Exam/Review of Systems Vital Signs Vitals Vital Signs Date Temp Pulse Resp B/P (MAP) Pulse Ox O2 O2 Flow FiO2 Time Delivery Rate 08/15/18 98.4 56 18 89/53 (65) 96 11:22 08/15/18 Room Air 00:13 08/13/18 2 12:05 Intake and Output 08/14/18 08/14/18 08/15/18 1515:00 23:00 07:00 IntakeIntake Total 250 ml 650 ml OutputOutput Total 600 ml 375 ml 800 ml BalanceBalance -350 ml -375 ml -150 ml Exam Exam Review of Systems: CONSTITUTIONAL: No fevers, chills. PULMONARY: No sob CARDIOVASCULAR: No chest pain/palpitations GASTROINTESTINAL: No nausea/vomiting. GENITOURINARY: No hematuria/dysuria. MUSCULOSKELETAL: No myagias/arthalgias. PSYCHIATRIC: The patient denies depression. NEUROLOGIC: No weakness Constitutional: alert, oriented Psych: no complaints Head: normocephalic ENMT: mucosa pink and moist Neck: supple, jvd (9 cm wter) Respiratory: clear to auscultation Cardiovascular: regular rate and rhythm Gastrointestinal: soft, non-tender Musculoskeletal: muscle tone (normal) Extremities: edema (none) Neurological: other (no focal deficits) Labs Result Diagram: 08/15/18 0552 08/15/18 0552 Results 24hrs Laboratory Tests Test 08/15/18 05:52 White Blood Count 8.6 Red Blood Count 4.22 L Hemoglobin 13.2 L Hematocrit 39.4 L Mean Corpuscular Volume 93.4 Mean Corpuscular Hemoglobin 31.3 Mean Corpuscular Hemoglobin Concent 33.5 Red Cell Distribution Width 13.3 Platelet Count 161 Mean Platelet Volume 12.3 H Immature Granulocytes % 0.400 Neutrophils % 63.7 Lymphocytes % 21.3 Monocytes % 13.1 H Eosinophils % 1.3 Basophils % 0.2 Nucleated Red Blood Cells % 0.0 Immature Granulocytes # 0.030 Neutrophils # 5.5 Lymphocytes # 1.8 Monocytes # 1.1 H Eosinophils # 0.1 Basophils # 0.0 Nucleated Red Blood Cells # 0.0 Sodium Level 141 Potassium Level 4.4 Chloride Level 110 Carbon Dioxide Level 25 Anion Gap 6 Blood Urea Nitrogen 15 Creatinine 1.21 Est Glomerular Filtrat Rate mL/min > 60 Glucose Level 98 Calcium Level 8.5 Phosphorus Level 3.3 Magnesium Level 1.9 Medications Medications Current Medications Nitroglycerin (Nitroglycerin (Sl Tab) 0.4 Mg) 1 tab Q5M UP TO 3 DOSES PRN SL .CHEST PAIN Last administered on 08/13/18at 12:36; Admin Dose 1 TAB; Start 08/13/18 at 12:30 Clopidogrel Bisulfate (plaVIX) 75 mg DAILY PO Last administered on 08/15/18at 08:43; Admin Dose 75 MG; Start 08/14/18 at 09:00 Acetaminophen (Tylenol Tab) 650 mg Q4H PRN PO PAIN; Start 08/13/18 at 13:30 Oxycodone/ Acetaminophen (Percocet (5/ 325)) 1 tab Q4H PRN PO PAIN; Start 08/13/18 at 13:30 Morphine Sulfate (morphine) 1 mg Q1H PRN IV PAIN; Start 08/13/18 at 13:30 Zolpidem Tartrate (Ambien) 5 mg HS MAY REPEAT X 1 PRN PO INSOMNIA; Start 08/13/18 at 13:30 Al Hydrox/Mg Hydrox/Simethicone (Mag-Al Plus) 30 ml Q4H PRN PO GASTROINTESTINAL UPSET; Start 08/13/18 at 13:30 Ondansetron HCl (Zofran Inj) 4 mg Q4H PRN IV NAUSEA AND/OR VOMITING; Start 08/13/18 at 13:30 Terazosin HCl (Hytrin) 2 mg HS PO Last administered on 08/14/18 22:39; Admin Dose 2 MG; Start 08/13/18 at 21:00 Atorvastatin Calcium (Lipitor) 40 mg HS PO Last administered on 08/14/18 22:39; Admin Dose 40 MG; Start 08/13/18 at 21:00 Benazepril HCl (Lotensin) 5 mg DAILY PO Last administered on 08/15/18 08:44; Admin Dose 5 MG; Start 08/15/18 at 09:00 Metoprolol Tartrate (Lopressor) 12.5 mg BID PO Last administered on 08/15/18 08:43; Admin Dose 12.5 MG; Start 08/14/18 at 21:00 Aspirin (Aspirin) 81 mg DAILY PO Last administered on 08/15/18 08:43; Admin Dose 81 MG; Start 08/15/18 at 09:00 GAMA PLASCENCIA August 15, 2018 11:47
--- NOTE | 2018-08-15 19:07 | DS ---
DATE OF ADMISSION: 08/13/2018 DATE OF DISCHARGE: 08/15/2018 DISCHARGE DIAGNOSES: 1. Acute anterior wall ST elevated myocardial infarction. 2. Status post PCI and stent placement to mid left anterior descending artery. 3. Hyperlipidemia. HOSPITAL COURSE: A 63-year-old male with known coronary artery disease, presented to emergency room with complaint of severe chest pain. The patient was diagnosed with acute ST elevated myocardial inf arction. He was taken to the [facility] by Dr. Ritchie. He underwent PCI and stent placement to mid L AD. There was moderate stenosis of the patient's PDA and the ramus branch. Left heart filling press ure was elevated at 39. There was no significant aortic systolic gradient. The patient was observed in the ICU following the procedure. He remained free of chest pain. The patient is now in a stable condition for discharge. His physical exam was unremarkable. MEDICATIONS ON DISCHARGE: 1. Lipitor 40 mg p.o. at bedtime. 2. Benazepril 5 mg daily. 3. Lopressor 12.5 mg b.i.d. 4. Plavix 75 mg daily. 5. Aspirin 81 mg daily. 6. Terazosin 2 mg at bedtime. 7. Vitamin B supplements. 8. P.r.n. nitroglycerin. FOLLOWUP: 1. Follow up with PCP in 1 week. 2. Follow up with Dr. Ritchie in 1 week. Dictated By: BETTY COHEN/NTS Conf#: [id number] DID#: [id number] CC: MARGARET WATERS MD; GAMA RITCHIE MD;*End*
== END 2018-08-15 13:40 | disposition home or self-care (01) | DRG 247 ==
LOC: E/R 12:00 → SDS 12:19 → CCL 12:19 → REC 12:36 → ICU 13:41 → TEL 08-14 19:37
PROVIDERS: ADMIT Internal Medicine; ATTEND Internal Medicine
PROC: B211YZZ Fluoroscopy of Multiple Coronary Arteries using Other Contrast (ICD-10-PCS; 2018-08-13)
PROC: 027034Z Dilation of Coronary Artery, One Artery with Drug-eluting Intraluminal Device, Percutaneous Approach (ICD-10-PCS; principal; 2018-08-13 11:30)
PROC: 4A023N7 Measurement of Cardiac Sampling and Pressure, Left Heart, Percutaneous Approach (ICD-10-PCS; 2018-08-13 11:30)
DX: I21.09 ST elevation (STEMI) myocardial infarction involving other coronary artery of anterior wall (principal); I25.10 Atherosclerotic heart disease of native coronary artery without angina pectoris; E78.5 Hyperlipidemia, unspecified; N40.0 Benign prostatic hyperplasia without lower urinary tract symptoms
CPT/HCPCS: 71045; 80048; 80053; 80061; 82550; 82553; 83036; 83735; 84100; 84484; 85025; 85610; 85730; 87081; 92928; 93005; 93306; 93458; 96374; 96375; C1725; C1874; C1887; C1894; J0583; J1644; J2250; J2270; J2405; J3010; J7030; Q9967

== ENCOUNTER 2018-10-18 12:12 | Emergency (ER) | payer OTHER ==
[~2018-10-18] VITALS: Ht 167.6 cm; Wt 80.0 kg
[~2018-10-18 12:12] MED LIST changes: -ACYC800T5 PO; +ASPI-817 PO; +ATOR40TA68 PO; +BEN25 PO; +BENA5TAB33 PO; +CLOP75TA28 PO; +ERGO500013 PO; -MUPI22OI2 TOP; +NITR0.4T32 SL; +TERA2CAP3 PO; -VALIUM
[2018-10-18 12:16] VITALS: BP 125/68; PULSE 57; RESP 18; Ht 167.6 cm; Wt 80.0 kg
--- NOTE | 2018-10-18 13:39 | ERD ---
ER Documentation Chief Complaint Chief Complaint facial swelling possible allergic reaction to new medication took for 1 day HPI 63-year-old male with past medical history of VA, is post recent stent 08/03, hyperlipidemia who presents with complaint of possible allergic reaction. Patient states he noticed some right-sided facial swelling after taking too many medications including loratadine. He otherwise denies shortness of breath, dyspnea, tongue swelling, lip swelling, rash or any other concerning symptoms. He further denies chest pain at the time, shortness of breath, dyspnea. Since episodic reports complete resolution of his symptoms. At time of examination patient nontoxic-appearing without any clinical evidence of allergic type reaction. He takes a number of chronic medication including aspirin, Plavix, bl ood pressure medications. ROS All systems reviewed and are negative except as per history of present illness. Medications Home Meds Active Scripts Diphenhydramine Hcl* (Benadryl*) 25 Mg Cap, 25 MG PO Q6, #14 CAP Prov:RAKESH EARLY PA-C 10/18/18 Benazepril Hcl* (Benazepril Hcl*) 5 Mg Tablet, 5 MG PO DAILY for 30 Days, TAB 3 Refills Prov:BETTY TROTTER MD 08/15/18 Atorvastatin* (Atorvastatin*) 40 Mg Tablet, 40 MG PO HS for 30 Days, TAB 6 Refills Prov:BETTY TROTTER MD 08/15/18 Clopidogrel Bisulfate (Clopidogrel) 75 Mg Tablet, 75 MG PO DAILY for 30 Days, TAB 6 Refills Prov:BETTY TROTTER MD 08/15/18 Reported Medications Terazosin Hcl* (Terazosin Hcl*) 2 Mg Capsule, 2 MG PO HS, CAP 08/13/18 Ergocalciferol (Vitamin D2) (VITAMIN D2) 50,000 Unit Capsule, 47836 UNIT PO Q7D, CAP 08/13/18 Nitroglycerin* (Nitroglycerin* SL) 0.4 Mg Tab.subl, 0.4 MG SL Q5MIN PRN for CHEST PAIN, BOTTLE 08/13/18 Aspirin* (Aspirin* EC) 81 Mg Tablet.dr, 81 MG PO DAILY, TAB 08/13/18 Allergies Allergies: Coded Allergies: No Known Drug Allergies (Verified Allergy, Mild, 10/18/18) PMhx/Soc History of Surgery: No Anesthesia Reaction: No Hx Neurological Disorder: No Hx Respiratory Disorders: No Hx Cardiac Disorders: Yes (HYPERTENSION; VA) Hx Psychiatric Problems: Yes (DEPRESSION) Hx Miscellaneous Medical Probl: No Hx Alcohol Use: No Hx Substance Use: No Hx Tobacco Use: No Smoking Status: Never smoker FmHx Family History: No diabetes, No coronary disease, No other Physical Exam Vitals Vital Signs Date Temp Pulse Resp B/P (MAP) Pulse Ox O2 O2 Flow FiO2 Time Delivery Rate 10/18/18 98.5 57 18 125/68 97 12:16 (87) Physical Exam Const: No acute distress Head: Atraumatic Eyes: Normal Conjunctiva ENT: Normal External Ears, Nose and Mouth. Neck: Full range of motion. No meningismus. Resp: Clear to auscultation bilaterally Cardio: Regular rate and rhythm, no murmurs Abd: Soft, non tender, non distended. Normal bowel sounds Skin: No petechiae or rashes Back: No midline or flank tenderness Ext: No cyanosis, or edema Neur: Awake and alert Psych: Normal Mood and Affect Procedures/MDM 63-year-old male presents with concern for allergic reaction. I have low suspicion for acute process such as impending respiratory failure, anaphylactic type reaction warrants further emergent care work-up at this time. Patient has been advised to stop new medication until he follows up with his PMD for oral medication review. She has a completely reassuring exam and does not have any red flag symptoms or complaints. DISPOSITION PLAN: We discussed follow up with the patient's primary care doctor within 24 to 48 hours. Patient counseled regarding my diagnostic impression and care plan. Prior to discharge all questions answered. Pt agrees with treatment plan and understands strict return precautions. Precautionary instructions provided including instructions to return to the ER if not improving or for any worsening or changing symptoms or concerns. Disclaimer: Inadvertent spelling and grammatical errors are likely due to EHR/dictation software use and do not reflect on the overall quality of patient care. Also, please note that the electronic time recorded on this note does not necessarily reflect the actual time of the patient encounter. Departure Diagnosis: Primary Impression: Allergy or intolerance to drug Condition: Stable Patient Instructions: Allergic Reaction, Drug Referrals: [facility] YOU HAVE RECEIVED A MEDICAL SCREENING EXAM AND THE RESULTS INDICATE THAT YOU DO NOT HAVE A CONDITION THAT REQUIRES URGENT TREATMENT IN THE EMERGENCY DEPARTMENT. FURTHER EVALUATION AND TREATMENT OF YOUR CONDITION CAN WAIT UNTIL YOU ARE SEEN IN YOUR DOCTORS OFFICE WITHIN THE NEXT 1-2 DAYS. IT IS YOUR RESPONSIBILITY TO MAKE AN APPOINTMENT FOR FOLOW-UP CARE. IF YOU HAVE A PRIMARY DOCTOR --you should call your primary doctor and schedule an appointment IF YOU DO NOT HAVE A PRIMARY DOCTOR YOU CAN CALL OUR PHYSICIAN REFERRAL HOTLINE AT IF YOU CAN NOT AFFORD TO SEE A PHYSICIAN YOU CAN CHOSE FROM THE FOLLOWING [facility] [address] [facility] [address] [facility] [facility] [address] [facility] [address] [facility]. [facility] [address] [facility]. [facility]. [address] Additional Instructions: Call your primary care doctor TOMORROW for an appointment during the next 2-3 days.See the doctor sooner or return here if your condition worsens before your appointment time. Hold medications until you follow-up with your primary care doctor and have a medication review given your concern for an allergic reaction to 1 of your new medications. RAKESH EARLY PA-C Oct 18, 2018 13:39
== END 2018-10-18 14:43 | disposition home or self-care (01) ==
LOC: FTE 12:12
DX: R22.0 Localized swelling, mass and lump, head (principal); I10 Essential (primary) hypertension; I25.2 Old myocardial infarction; Z79.82 Long term (current) use of aspirin
CPT/HCPCS: 99282